=== PATIENT | male | born 1940 | race Caucasian/White ===

== ENCOUNTER 2017-02-06 12:37 | Inpatient (IN) | payer OTHER ==
--- NOTE | 2017-02-06 13:28 | EDPHY ---
HPI/HX/ROS/PE/MDM Narrative: CHIEF COMPLAINT: Weakness, multiple seizures last night. HPI: The patient is a 77-year-old male with a history of Parkinson's who presents with weakness since last night when he had 2 seizures. His reports that he would verbally cry out and then shake for around a minute. He would then have heavy breathing from his mouth. These occurred within 2 hours of each other. She does report that he fell yesterday evening but did not lose consciousness. Last seizure was last April and was the same presentation as lat night. He denies cough, fever, shortness of breath, chest pain. History is limited due to the patient's non-verbal baseline status. REVIEW OF SYSTEMS: Aside from elements discussed in the HPI, a comprehensive 10-point review of systems was reviewed and is negative. PMH: Parkinson's, recurrent UTIs. 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 PHYSICAL EXAM: General: Patient is alert, in no acute distress. ENT: Eyes are normal to inspection. ENT inspection normal. Neck: Normal inspection. Full range of motion. Respiratory: No respiratory distress. Breath sounds normal bilaterally. Cardiovascular: Regular rate and rhythm. Strong peripheral pulses. Abdomen: The abdomen is nontender to palpation. There are no peritoneal signs. There are normal bowel sounds. Back: Normal to inspection. No tenderness to palpation. Skin: Normal color. No rash. Warm and dry. Extremities: Normal appearance. Full range of motion. Neuro: Oriented x3. Normal motor function. Normal sensory function. Portions of this note were transcribed by an ED scribe. I personally performed the history, physical exam, and medical decision making; and confirm the accuracy of the information in the transcribed note. ED Course: 77-year-old male with a history of Parkinson's presents with his for weakness after he experienced 2 seizures last night. These occurred two hours apart and were similar to his last seizure, which was last April. At that time he presented for weakness that ended up being due to a UTI. He has no other complaints today. No shortness of breath, abdominal pain, vomiting, fever, chest pain, or recent sickness. An IV was established and labs ordered. UA ordered. 1L IV saline administered to expedite the urine collection process. I reviewed the patient's laboratory studies. Troponin is mildly elevated at 0.036. Plan for admission for further workup. EKG was ordered and interpreted by myself. Please see [employer] system for official reading. 1434: Consulted with Dr. Guan, hospitalist. She accepts admission. - Data Points Laboratory Results: Laboratory Results 02/06/17 13:45 02/06/17 13:45 02/06/17 02/06/17 13:45 13:45 WBC 11.38 10^3/uL H 10^3/uL (3.80-9.50) RBC 5.02 10^6/uL 10^6/uL (4.40-6.38) Hgb 15.4 g/dL g/dL (13.7-17.5) Hct 47.0 % % (40.0-51.0) MCV 93.6 fL fL (81.5-99.8) MCH 30.7 pg pg (27.9-34.1) MCHC 32.8 g/dL g/dL (32.4-36.7) RDW 12.8 % % (11.5-15.2) Plt Count 178 10^3/uL 10^3/uL (150-400) MPV 11.4 fL fL (8.7-11.7) Neut % (Auto) 82.7 % H % (39.3-74.2) Lymph % (Auto) 8.8 % L % (15.0-45.0) [place] % (Auto) 7.9 % % (4.5-13.0) Eos % (Auto) 0.1 % L % (0.6-7.6) Baso % (Auto) 0.2 % L % (0.3-1.7) Nucleat RBC Rel Count 0.0 % % (0.0-0.2) Absolute Neuts (auto) 9.42 10^3/uL H 10^3/uL (1.70-6.50) Absolute Lymphs (auto) 1.00 10^3/uL 10^3/uL (1.00-3.00) Absolute Monos (auto) 0.90 10^3/uL H 10^3/uL (0.30-0.80) Absolute Eos (auto) 0.01 10^3/uL L 10^3/uL (0.03-0.40) Absolute Basos (auto) 0.02 10^3/uL 10^3/uL (0.02-0.10) Absolute Nucleated RBC 0.00 10^3/uL 10^3/uL (0-0.01) Immature Gran % 0.3 % % (0.0-1.1) Immature Gran # 0.03 10^3/uL 10^3/uL (0.00-0.10) Sodium 145 mEq/L H mEq/L (134-144) Potassium 3.8 mEq/L mEq/L (3.5-5.2) Chloride 109 mEq/L mEq/L (97-110) Carbon Dioxide 25 mEq/l mEq/l (22-31) Anion Gap 11 mEq/L mEq/L (8-16) BUN 27 mg/dL H mg/dL (7-23) Creatinine 1.0 mg/dL mg/dL (0.7-1.3) Estimated GFR > 60 Glucose 114 mg/dL H mg/dL (70-100) Calcium 9.1 mg/dL mg/dL (8.5-10.4) Troponin I 0.036 ng/mL H ng/mL (0-0.034) Medications Given: Discontinued Medications Sodium Chloride (Ns) 1,000 mls @ 0 mls/hr IV ONCE ONE PRN Reason: Wide Open Stop: 02/06/17 13:30 Last Admin: 02/06/17 13:49 Dose: 1,000 mls General Time Seen by Provider: 02/06/17 12:58 Initial Vital Signs: Initial Vital Signs Temperature (C) 36.8 C 02/06/17 12:52 Heart Rate 73 02/06/17 12:52 Respiratory Rate 20 02/06/17 12:52 Blood Pressure 122/63 H 02/06/17 12:52 O2 Sat (%) 91 L 02/06/17 12:52 O2 Delivery Mode Room Air Allergies/Adverse Reactions: No Known Allergies Allergy (Verified 03/20/15 12:19) Home Medications: Medication Instructions Recorded Carbidopa/Levodopa [Sinemet Cr 1 each PO HS 03/13/13 50-200 Tablet] Herbals/Supplements -Info Only 1 each PO AD 03/13/13 Aspirin EC [Aspirin EC 325 mg (*)] 325 mg PO DAILY 03/26/13 Cholecalciferol (Vitamin D3) 4,000 unit PO DAILY 03/20/15 [Vitamin D3] Rasagiline Mesylate [Azilect] 1 mg PO DAILY 03/20/15 Carbidopa/Levodopa [Carbidopa-Levo 1 tab PO 08,1300,1800 05/12/16 ER 50-200 Tab] Acetaminophen [Tylenol 325mg (*)] 650 mg PO Q4 PRN #0 tab 05/14/16 Cephalexin [Keflex (*)] 500 mg PO BIDDIUR #14 cap 05/14/16 levETIRAcetam [Keppra 500 mg (*)] 500 mg PO BID #60 tab 05/14/16 Departure - Departure Disposition: [facility] Acute Clinical Impression: Seizure, Elevated troponin Condition: Fair Report Scribed for: Pedro Vazquez Report Scribed by: Christian Clark Date of Report: 02/06/17 Time of Report: 13:31
[2017-02-06] MEDS ORDERED: NS 1,000 ML IV ONE ×2 (13:29→14:34)
[2017-02-06 13:54] LABS: % IMMATURE GRANULYOCYTES 0.3 % (0.0-1.1); ABSOLUTE IMMATURE GRANULOCYTES 0.03 10^3/uL (0.00-0.10); ADD DIFF? NO; ADD MORPH? NO; ADD SCAN? NO; ATYPICAL LYMPHOCYTE FLAG 20 (0-99); FRAGMENT RBC FLAG 0 (0-99); HEMOGLOBIN 15.4 g/dL (13.7-17.5); LEFT SHIFT FLG 0 (0-99); LIPEMIA HEMOLYSIS FLAG 80 (0-99); MEAN CELL HEMOGLOBIN 30.7 pg (27.9-34.1); MEAN CELL HEMOGLOBIN CONCENTR. 32.8 g/dL (32.4-36.7); MEAN CELL VOLUME 93.6 fL (81.5-99.8); MEAN PLATELET VOLUME 11.4 fL (8.7-11.7); PLATELET CLUMPS FLAG 0 (0-99); PLATELET COUNT 178 10^3/uL (150-400); RED BLOOD CELL COUNT 5.02 10^6/uL (4.40-6.38); RED CELL DISTRIBUTION WIDTH 12.8 % (11.5-15.2)
[2017-02-06 14:13] LABS: ANION GAP 11 mEq/L (8-16); CALCIUM 9.1 mg/dL (8.5-10.4); CARBON DIOXIDE 25 mEq/l (22-31); CHLORIDE 109 mEq/L (97-110); GLOMERULAR FILTRATION RATE > 60; GLUCOSE 114 mg/dL (70-100); POTASSIUM 3.8 mEq/L (3.5-5.2); SODIUM 145 mEq/L (134-144)
[2017-02-06 14:25] LABS: TROPONIN I 0.036 ng/mL (0-0.034)
[2017-02-06] MEDS ORDERED: ACETAMINOPHEN 325 MG TAB PO PRN (14:34)
[2017-02-06] MEDS ORDERED: ONDANSETRON 4 MG/2 ML VIAL IVP PRN (14:34)
[2017-02-06] MEDS ORDERED: ONDANSETRON DISINTEGRATING 4 MG TAB PO PRN (14:34)
--- NOTE | 2017-02-06 14:53 | CPEKG ---
Heart Rate: 75 RR Interval: 800 P-R Interval: 180 QRSD Interval: 106 QT Interval: 480 QTC Interval: 537 P Independence: 76 QRS Independence: 72 T Wave Independence: 236 EKG Severity - ABNORMAL ECG - EKG Impression: SINUS RHYTHM EKG Impression: INCOMPLETE RIGHT BUNDLE BRANCH BLOCK EKG Impression: NONSPECIFIC T ABNORMALITIES, LATERAL LEADS EKG Impression: PROLONGED QT INTERVAL Electronically Signed By: Pedro Vazquez 06-Feb-2017 15:08:03
[2017-02-06 15:08] LABS: COLOR YELLOW; LEUKOCYTE ESTERASE,URINE 3+ (NEGATIVE); NITRITE,URINE POSITIVE (NEGATIVE)
[2017-02-06 15:31] LABS: AMORPHOUS PRESENT /hpf (NONE-1+); BACTERIA 1+ /hpf (NONE SEEN); MUCUS TRACE /lpf (NONE-1+); WBC,URINE 50-182 /hpf (0-3)
--- NOTE | 2017-02-06 16:29 | GHP ---
[f rep st] HISTORY AND PHYSICAL DATE OF ADMISSION: 02/06/2017 CHIEF COMPLAINT: Seizure. HISTORY OF PRESENT ILLNESS: This is a 77-year-old male with Parkinson's that is been progressive, w ho presents with 2 seizures the evening prior to presentation. The patient is nonverbal from his Pa lester's, but is able to answer questions using a thumbs up, thumbs down, and his providing si gnificant history. Per their report, the patient was in his normal state of health the day preceding his presentation. Did have poor appetite at his adult day care center that day, but then ate a normal dinner, was not noted to have any fevers or chills. Denies any chest pain, shortness of breath, abdominal discomfo rt. Has not had diarrhea. The patient denies dysuria or hematuria. He uses a condom cath and, per the 's report, his urine output has been his typical. The patient denies any muscle aches or p ains. Denies any headache, any numbness or tingling. The patient had a hospitalization in April of last year with a similar presentation, presented with a seizure and was found to have a urinary tract infection at the time, was treated for that and had c omplete resolution of his neurologic symptoms. PAST MEDICAL HISTORY: 1. Parkinson's. 2. History of prostate cancer. 3. Hypertension. 4. Chronic urinary retention, uses a condom catheter. 5. Aortic stenosis status post valve replacement. 6. Atrial fibrillation. SOCIAL HISTORY: Negative for tobacco, very rare alcohol. No illicit drugs or marijuana. ADVANCED DIRECTIVES: The patient is "Do Not Resuscitate". His would be his medical decision adan daigle. REVIEW OF SYSTEMS: A 10-point review of systems is negative with the exception of that reported in the HPI. FAMILY HISTORY: Both parents are . PHYSICAL EXAMINATION: VITAL SIGNS: Blood pressure 154/73, heart rate 73, respiratory rate 17, 97% on room air, temperature 37.0. GENERAL: This is a chronically ill-appearing, elderly male in no ac eek distress. HEENT: Notable for dry mucous membranes. Eye exam is negative for any icterus. CAR DIAC: Regular rate and rhythm. Systolic murmur is appreciated. PULMONARY: Patient has good respi ratory effort, is clear to auscultation bilaterally. GASTROINTESTINAL: Positive bowel sounds. ABD OMEN: Soft and nontender. MUSCULOSKELETAL: Negative for any lower extremity edema. SKIN: Exam i s negative for any rashes. NEUROLOGIC: The patient is alert and appropriately answering questions. PSYCHIATRIC: He is pleasant and cooperative on interview and examination. DATA: EKG, which I personally reviewed and interpreted, shows sinus rhythm, normal axis, normal int ervals with nonspecific ST flattening in leads V2 through V6. Appears similar to his EKG of April of 2016. LABORATORY DATA: White count is 11.3, hematocrit 47, platelets of 178. Sodium of 145, creatinine 1 .0. Troponin 0.036. Urinalysis shows 50-182 white blood cells. Positive nitrate, positive leukocy te esterase. ASSESSMENT AND PLAN: This is a 77-year-old male presenting with a seizure. 1. Acute seizure. Urinalysis confirmed the patient has an underlying urinary tract infection. Thi s presentation very directly mirrors his presentation in April of 2016. The patient has not had any seizures since his disposition from this last hospitalization. Will not load the patient with any e pileptics at this time, but instead treat his underlying infection and monitor his neurologic examin ation. I do not believe neuro imaging is indicated at this time. 2. Acute urinary tract infection. Urinalysis is consistent. Patient has known chronic urinary ret ention. Will check blood cultures and initiate IV levofloxacin. 3. Acute leukocytosis secondary to urinary tract infection. Will treat as above and follow both bl ood and urine cultures. 4. Parkinson's. Will continue patient's home medications at his appropriate timing. Have ordered PT and OT for evaluation. 5. Indeterminate troponin. The patient does not have any chest pain complaints and appears to have baseline troponins that range in the 0.02 to 0.1 range. I will check 1 more troponin this evening to verify that it is not extending beyond that range, and otherwise will avoid additional cardiac wo rkup. The patient remained on telemetry overnight as well. 6. Prophylaxis with Lovenox. 7. Diet regular. DISPOSITION: Less than 2 midnights if the patient's neurologic exam remains stable with treatment o f his underlying urinary tract infection. I have discussed the case with the emergency room citlaly parra. Patient will be triaged to the medical-surgical floor for care. /[id number]/MODL
[2017-02-06] MEDS: CARBIDOPA/LEVO CR 50 MG/200 MG TAB PO SCH (18:40)
[2017-02-07 05:06] LABS: % IMMATURE GRANULYOCYTES 0.4 % (0.0-1.1); ABSOLUTE IMMATURE GRANULOCYTES 0.05 10^3/uL (0.00-0.10); ADD DIFF? NO; ADD MORPH? NO; ADD SCAN? NO; ATYPICAL LYMPHOCYTE FLAG 20 (0-99); FRAGMENT RBC FLAG 0 (0-99); HEMOGLOBIN 14.4 g/dL (13.7-17.5); LEFT SHIFT FLG 10 (0-99); LIPEMIA HEMOLYSIS FLAG 80 (0-99); MEAN CELL HEMOGLOBIN 30.8 pg (27.9-34.1); MEAN CELL HEMOGLOBIN CONCENTR. 32.7 g/dL (32.4-36.7); MEAN CELL VOLUME 94.2 fL (81.5-99.8); MEAN PLATELET VOLUME 11.8 fL (8.7-11.7); PLATELET CLUMPS FLAG 10 (0-99); PLATELET COUNT 165 10^3/uL (150-400); RED BLOOD CELL COUNT 4.67 10^6/uL (4.40-6.38); RED CELL DISTRIBUTION WIDTH 12.7 % (11.5-15.2)
[2017-02-07 05:21] LABS: ANION GAP 7 mEq/L (8-16); CALCIUM 8.9 mg/dL (8.5-10.4); CARBON DIOXIDE 23 mEq/l (22-31); CHLORIDE 113 mEq/L (97-110); GLOMERULAR FILTRATION RATE > 60; GLUCOSE 115 mg/dL (70-100); POTASSIUM 3.9 mEq/L (3.5-5.2); SODIUM 143 mEq/L (134-144)
[2017-02-07] MEDS: CHOLECALCIFEROL VIT D3 2,000 UNITS TAB/CAP PO SCH (09:47)
[2017-02-07] MEDS: CARBIDOPA/LEVO CR 50 MG/200 MG TAB PO SCH ×3 (09:48→17:35)
[2017-02-07] MEDS: ASPIRIN EC 325 MG TAB PO SCH (09:48)
[2017-02-07] MEDS: ENOXAPARIN 40 MG/0.4 ML SYR SC SCH (09:48)
[2017-02-07] MEDS: Rasagiline Mesylate [Azilect] 1 MG PO SCH (10:39)
--- NOTE | 2017-02-07 14:49 | HOSPPROG ---
Hospitalist Progress Note Assessment/Plan: 77y male with SZ, and parkinsons. This is my first encounter. Chart reviewed. #SZ second to UTI no further SZ #UTI cont levaquin urine cx pending blood cx pending #Leukocystosis response to infection #Parkinsons close to baseline cont PT/OT nonverbal #Indetermienate troponin stable no other intervention wanted #Diet regular #Dispo change to inpt status will need further monitoring possible DC home in am with HHC reviewed with pt and Subjective: Up in chair. No specific complaints. No pain. Objective: Vital Signs Temp Pulse Resp BP Pulse Ox 36.6 C 75 18 102/54 L 92 02/07/17 12:00 02/07/17 12:00 02/07/17 12:00 02/07/17 12:00 02/07/17 12:00 Laboratory Results 02/07/17 04:20 02/07/17 04:20 02/06/17 02/07/17 02/08/17 05:59 05:59 05:59 Intake Total 1000 Output Total 50 1 Balance 950 -1 - Physical Exam Constitutional: no apparent distress, appears nourished, not in pain Eyes: PERRL, anicteric sclera, EOMI Ears, Nose, Mouth, Throat: moist mucous membranes, hearing normal, ears appear normal Cardiovascular: No JVD, No tachycardia, No edema Respiratory: no respiratory distress, no rales or rhonchi, reduced air movement Gastrointestinal: No tenderness, No ascites, No guarding Skin: warm, normal color, No erythema Musculoskeletal: normal joint ROM, no joint effusions, generalized weakness Neurologic: AAOx3 Psychiatric: interacting appropriately, not anxious, not encephalopathic ICD10 Worksheet Patient Problems: Problems Problem Status Onset Parkinson disease Acute UTI (lower urinary tract infection) Acute UTI (urinary tract infection) Acute Generalized weakness Acute ESBL (extended spectrum beta-lactamase) producing bacteria infection Acute 10/11 Seizure Acute Elevated troponin Acute
[2017-02-08 05:20] VITALS: O2SAT 96
[2017-02-08 07:40] VITALS: BP 144/71; PULSE 72; RESP 15; TEMP 97.8
[2017-02-08] MEDS: ASPIRIN EC 325 MG TAB PO SCH (08:58)
[2017-02-08] MEDS: CARBIDOPA/LEVO CR 50 MG/200 MG TAB PO SCH ×2 (08:58→13:27)
[2017-02-08] MEDS: ENOXAPARIN 40 MG/0.4 ML SYR SC SCH (08:58)
[2017-02-08] MEDS: CHOLECALCIFEROL VIT D3 2,000 UNITS TAB/CAP PO SCH (08:58)
[2017-02-08] MEDS: Rasagiline Mesylate [Azilect] 1 MG PO SCH (08:59)
--- NOTE | 2017-02-08 11:01 | PDIAF ---
- Diagnosis Diagnosis: UTI Code Status: Do Not Resuscitate - Medication Management Discharge Medications: Medications to Continue on Transfer Herbals/Supplements -Info Only 1 each PO AD 03/13/13 [Last Taken 05/11/16] Aspirin EC [Aspirin EC 325 mg (*)] 325 mg PO DAILY 03/26/13 [Last Taken 02/06/17 ] Cholecalciferol (Vitamin D3) [Vitamin D3] 4,000 unit PO DAILY 03/20/15 [Last Taken 02/06/17] Rasagiline Mesylate [Azilect] 1 mg PO DAILY 03/20/15 [Last Taken 02/06/17] Carbidopa/Levodopa [Carbidopa-Levo ER 50-200 Tab] 1 tab PO 08,1300,1800 [Last Taken 02/06/17] Acetaminophen [Tylenol 325mg (*)] 650 mg PO Q4HRS PRN #0 tab 02/08/17 [Last Taken Unknown] levOFLOXACIN [levAQUIN (*)] 750 mg PO DAILY #5 tab 02/08/17 [Last Taken Unknown] Discharge Medications: Refer to the Discharge Home Medication list for PRN reason. PICC Care - Routine: N/A - Orders Services needed: Home Care, Physical Therapy, Occupational Therapy Home Care Face to Face: I certify that this patient was under my care and that I had the required [id number] encounter meeting the encounter requirements on the discharge day. My findings support the fact that the patient is homebound as defined in CMS Chapter 7 Medicare Benefits Manual 30.1.1, The condition of the patient is such that there exists a normal inability to leave home and consequently, leaving home would require a considerable and taxing effort. - Follow Up Care Current Providers and Referrals: Kelly Dempsey MD [Primary Care Provider] - As per Instructions
--- NOTE | 2017-02-08 14:21 | GDS ---
[f rep st] DISCHARGE SUMMARY DISCHARGE DIAGNOSES: 1. Extended-spectrum beta-lactamase urinary tract infection. 2. Seizure disorder. 3. History of Parkinson disease. 4. Leukocytosis. 5. Indeterminate troponin. PHYSICAL EXAMINATION: GENERAL: The patient is alert. VITAL SIGN: Afebrile at 36.6, pulse is 72, r espiratory rate is 15, blood pressure is 144/71. He is saturating 96% on room air. I have seen and evaluated the patient on the day of discharge. HOSPITAL COURSE: The patient is a 77-year-old male who presents to the emergency room with 2 seizur es. He was evaluated and diagnosed with: 1. ESBL urinary tract infection: During this hospitalization, the patient was treated with antibio tic therapy. He has been discharged on Macrobid. He will follow up with his primary care physician in 1 week to re-evaluate his infection. Prescription has been provided at the time of disposition. Repeat outpatient culture should be obtained. I reviewed the patient's case with Dr. Sebastian Dela Cruz. 2. History of Parkinson disease: Patient is close to his baseline with regard to this. He will swartz ve home health care at the time of disposition. 3. Seizure: The patient has had no seizure activity during this hospitalization and does not wish to have any further evaluation secondary to this condition. He does not want to be placed on any an ti-epileptic medications at this time. 4. Acute leukocytosis: This is secondary to the patient's infectious process. 5. Indeterminate troponin: His troponin has stabilized. Again, the patient and his do not wi sh to have any further intervention or workup regarding this condition. DISPOSITION: The patient will be discharged home with his and home health care. There are no pending studies. Followup will be with his primary care physician in 1 week, Dr. Kelly Dempsey. It i s recommended that he have repeat urinalysis and culture in the outpatient setting. DISCHARGE MEDICATIONS: 1. Macrobid 100 mg p.o. twice daily (#14). 2. Tylenol. I have not discontinued the patient's previously prescribed other home medications. Please refer to EMR form for specific details. I spent greater than 35 minutes in the care, coordination, and management of this patient's disposit ion. /[id number]/MODL
== END 2017-02-08 13:48 | disposition home health service (06) | DRG 690 ==
LOC: F3N 15:45 → OBSVTOIN 02-07 14:51
PROVIDERS: ADMIT Hospitalist; ATTEND Internal Medicine
DX: N39.0 Urinary tract infection, site not specified (principal); G40.909 Epilepsy, unspecified, not intractable, without status epilepticus; G20 Parkinson's disease; I10 Essential (primary) hypertension; Z95.3 Presence of xenogenic heart valve
CPT/HCPCS: 97116-GP; 97162-GP; 97166-GO; 97535-GO; G0378; G8978-GP-CM; G8979-GP-CL; G8987-GO-CK; G8988-GO-CJ; J1650; J1956; J2405

== ENCOUNTER 2017-06-04 10:30 | Inpatient (IN) | payer OTHER ==
--- NOTE | 2017-06-04 11:03 | EDPHY ---
H & P Stated Complaint: BIBA for gen weakness & possible UTI, possible sz last night HPI/ROS: CHIEF COMPLAINT: Weakness, possible UTI. HISTORY OF PRESENT ILLNESS: This patient is a 77 year old male with Parkinson's disease arriving via EMS for evaluation of weakness and possible urinary tract infection. He is nonverbal, which reportedly began following aortic valve replacement in late 2012. His at bedside reports that yesterday, he had two seizures around 1:30 and 5:30. During these episodes, he generally cries out, shakes, and blows air through his lips. This morning, he was too weak to get out of bed. He can generally walk around the house with his walker after being helped out of bed, but today he is unable to get up at all. He uses a wheelchair outside of the home. He has had similar symptoms in the past, associated with urinary tract infections. His denies any known fever. He has had difficulty eating recently, and was not able to take his medication this morning - the pill remains on his tongue. No recent illnesses or fever. REVIEW OF SYSTEMS: A ten point review of systems was performed and is negative with the exception of the items mentioned in the HPI. This information was provided by his . Past medical history: Parkinson's disease (diagnosed 10/2007), history of hypertension, resolved. Past surgical history: Right hip replacement (2006), aortic valve replacement ( 2012) Family history: Noncontributory. Social history: at bedside. Home care once per week and day care two times per week. 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 Primary care physician is Dr. Jaquez. General Appearance: Alert. Paucity of motion. Vital signs reviewed. Blood pressure 146/79. Eyes: Pupils equal and pinpoint, no conjunctival injection, no discharge. Anicteric. ENT, Mouth: Mucous membranes are dry, no oropharyngeal erythema or edema. Neck: No lymphadenopathy, supple. Respiratory: Lungs are clear to auscultation; no wheezes, rales, or rhonchi. Cardiovascular: Regular rate and rhythm; no murmur, rub, or gallop. Gastrointestinal: Abdomen is soft, no masses or organomegaly, bowel sounds normal. Skin: Warm and dry, no rashes on exposed skin, normal color. Extremities: No lower extremity edema, no calf tenderness or swelling. Neurological: Alert. Nonverbal. Rigidity of all limbs, no spontaneous movement other than right thumb. Psychiatric: Normal affect. Source: Family - Personal History Current Tetanus/Diphtheria Vaccine: Unsure Current Tetanus Diphtheria and Acellular Pertussis (TDAP): Unsure Tetanus Vaccine Date: within last 6 years - Medical/Surgical History Hx Asthma: No Hx Chronic Respiratory Disease: No Hx Diabetes: No Hx Cardiac Disease: Yes Hx Renal Disease: No Hx Cirrhosis: No Hx Alcoholism: No Hx HIV/AIDS: No Hx Splenectomy or Spleen Trauma: No Other PMH: parkinsons/carotid stenosis/htn/afib/aortic valve replacement 02/2013 , htn (resolved), urinary retention, urinary catheter, prostate cancer treated. 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 ) right hip replacement , cataract surgery bilat , seizures - Social History Smoking Status: Never smoked Constitutional: Initial Vital Signs Temperature (C) 36.4 C 06/04/17 10:50 Heart Rate 92 06/04/17 10:50 Respiratory Rate 16 06/04/17 10:50 Blood Pressure 146/79 H 06/04/17 10:50 O2 Sat (%) 92 06/04/17 10:50 O2 Delivery Mode Room Air Allergies/Adverse Reactions: No Known Allergies Allergy (Verified 06/04/17 10:50) Home Medications: Medication Instructions Recorded Herbals/Supplements -Info Only 1 each PO AD 03/13/13 Aspirin EC [Aspirin EC 325 mg (*)] 325 mg PO DAILY 03/26/13 Cholecalciferol (Vitamin D3) 4,000 unit PO DAILY 03/20/15 [Vitamin D3] Rasagiline Mesylate [Azilect] 1 mg PO DAILY 03/20/15 Carbidopa/Levo Cr 50/200Mg 1 tab PO TID@,,18 06/04/17 [SINEMET CR 50/200 MG (*)] Medical Decision Making ED Course/Re-evaluation: 77-year-old with Parkinson's disease. I have not found evidence of infection in my evaluation. I do not find evidence for urinary tract infection. He has a condom catheter, not an indwelling catheter. Chest x-ray is negative for pneumonia. He is not febrile. I suspect dehydration and Parkinson's exacerbation. His states that he has had difficulty with swallowing his pills. He has a carbidopa levodopa pill on his tongue at the time of my evaluation. I do not know whether adjusting his medications would make a difference or not. IV fluids administered in the emergency department. Blood work reviewed. His describes 2 episodes of what she feels was seizure activity last night. He does not have a known diagnosis of seizure. Apparently he has had previous similar episodes, of which his neurologist is aware. It has been many hours since these episodes. No seizure activity witnessed while in the emergency department. Neurology will be consulted concerning his overall presentation. Even though I have not found evidence of an infection, it is clear to me that his cannot independently care for him at home in this state. He is quite rigid and immobile. She has help once a week. She would not be able to move him from the bed. He will be admitted to the hospitalist service. Dr. Day is the accepting physician. - Data Points Laboratory Results: Laboratory Results 06/04/17 11:03 06/04/17 11:03 Medications Given: Aspirin Buffered (Aspirin Ec) 325 mg PO DAILY DONOVAN Stop: 12/02/17 08:59 Last Admin: 06/05/17 08:34 Dose: 325 mg Carbidopa/Levodopa (Sinemet Cr 50/200) 1 tab PO TID@ DONOVAN Stop: 12/02/17 07:59 Last Admin: 06/05/17 08:34 Dose: 1 tab Cholecalciferol (Vitamin D) 4,000 units PO DAILY DONOVAN Stop: 12/02/17 08:59 Last Admin: 06/05/17 08:34 Dose: 4,000 units Enoxaparin Sodium (Lovenox) 40 mg SC DAILY DONOVAN Stop: 12/02/17 08:59 Last Admin: 06/05/17 08:34 Dose: 40 mg Potassium Chloride/Dextrose/Sod Cl (D5w 1/2 Ns W/ 20 Kcl/L) 1,000 mls @ 50 mls/ hr IV CONT DONOVAN Stop: 12/01/17 16:29 Last Admin: 06/05/17 11:36 Dose: 1,000 mls Levetiracetam 500 mg/ Sodium (Chloride) 105 mls @ 420 mls/hr IV BID DONOVAN Stop: 12/01/17 20:59 Last Admin: 06/05/17 08:34 Dose: 105 mls Miscellaneous Medication (Rasagiline Mesylate [Azilect]) 1 mg PO DAILY DONOVAN Stop: 12/02/17 08:59 Last Admin: 06/05/17 08:45 Dose: Not Given Discontinued Medications Sodium Chloride (Ns) 1,000 mls @ 0 mls/hr IV EDNOW ONE; Wide Open PRN Reason: Protocol Stop: 06/04/17 11:36 Last Admin: 06/04/17 11:44 Dose: 1,000 mls Sodium Chloride (Ns) 1,000 mls @ 0 mls/hr IV ONCE ONE PRN Reason: Wide Open Stop: 06/04/17 14:51 Last Admin: 06/04/17 14:53 Dose: 1,000 mls Departure - Departure Disposition: [facility] Acute Clinical Impression: Generalized weakness, Parkinsons disease Condition: Fair Report Scribed for: Britney mcguire) Report Scribed by: Jennifer Ho Date of Report: 06/04/17 Physician Review and Approval Statement: 06/05/17 12:35 Portions of this note were transcribed by the certified medical technician. I, Dr. Britney Bull, personally performed the history, physical exam, and medical decision- making; and confirmed the accuracy of the information in the transcribed note.
[2017-06-04] MEDS ORDERED: NS 1,000 ML IV ONE ×2 (11:35→14:50)
[2017-06-04 11:53] LABS: % IMMATURE GRANULYOCYTES 0.4 % (0.0-1.1); ABSOLUTE IMMATURE GRANULOCYTES 0.05 10^3/uL (0.00-0.10); ADD DIFF? NO; ADD MORPH? NO; ADD SCAN? NO; ANION GAP 12 mEq/L (8-16); ATYPICAL LYMPHOCYTE FLAG 0 (0-99); CALCIUM 9.2 mg/dL (8.5-10.4); CARBON DIOXIDE 23 mEq/l (22-31); CHLORIDE 108 mEq/L (97-110); FRAGMENT RBC FLAG 0 (0-99); GLOMERULAR FILTRATION RATE > 60; GLUCOSE 109 mg/dL (70-100); LEFT SHIFT FLG 10 (0-99); LIPEMIA HEMOLYSIS FLAG 80 (0-99); MEAN CELL HEMOGLOBIN 31.4 pg (27.9-34.1); MEAN CELL HEMOGLOBIN CONCENTR. 32.7 g/dL (32.4-36.7); MEAN CELL VOLUME 96.1 fL (81.5-99.8); MEAN PLATELET VOLUME 11.7 fL (8.7-11.7); PLATELET CLUMPS FLAG 10 (0-99); PLATELET COUNT 192 10^3/uL (150-400); POTASSIUM 3.9 mEq/L (3.5-5.2); RED CELL DISTRIBUTION WIDTH 12.8 % (11.5-15.2); SODIUM 143 mEq/L (134-144)
[2017-06-04] MEDS ORDERED: LIDOCAINE 2% JELLY 20 ML (UROJECT) ONE (13:13)
[2017-06-04 13:41] LABS: COLOR YELLOW; LEUKOCYTE ESTERASE,URINE TRACE (NEGATIVE); NITRITE,URINE NEGATIVE (NEGATIVE)
[2017-06-04 13:49] LABS: MUCUS TRACE /lpf (NONE-1+)
--- NOTE | 2017-06-04 16:55 | GHP ---
[f rep st] HISTORY AND PHYSICAL DATE OF ADMISSION: 06/04/2017 CHIEF COMPLAINT: Altered mental status and weakness. HISTORY OF PRESENT ILLNESS: This is a 77-year-old male with severe Parkinson disease who was usman t to the emergency department via EMS after he was noted to be very weak this morning. Last night p er the report of his he had 2 seizures. The 1st one was at 1:30 and the 2nd one was at 5:30 th is morning. She says he has had seizures in the past that have been attributed to urinary tract inf ections. During these 4 previous episodes, he has presented in a similar fashion where he has been very rigid and confused after these episodes but improved after receiving antibiotics for his urinar y tract infection. He has been compliant with his home medications. His diet has been poor and he has been having trouble eating. He has not been drinking much fluids. He has not been having any f alise or chills. He was in his usual state of health up until these seizures occurred at 1:30 this morning. During the seizure it was described that they lasted for seconds to minutes and were assoc iated with tonic-colonic movements, and he did appear to lose consciousness. PAST MEDICAL HISTORY: 1. Parkinson disease. 2. Prostate cancer. 3. Hypertension. 4. Chronic urinary retention. 5. Aortic stenosis status post valve replacement. 6. Atrial fibrillation. 7. Right total hip arthroplasty. HOME MEDICATIONS: Reviewed. Refer to [employer] for details. ALLERGIES: No known drug allergies. SOCIAL HISTORY: Lives at home with his with home care. 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 FAMILY HISTORY: Both parents are . REVIEW OF SYSTEMS: Review of systems was unobtainable since the patient is not able to answer quest ions. All history was obtained via the patient's . PHYSICAL EXAM: VITAL SIGNS: Blood pressure 144/71, pulse of 82, respiratory rate 18, O2 saturation 92% on room air. Temperature afebrile. GENERAL: Ill-appearing. HEAD: Normocephalic, atraumatic . Eyes are PERRLA. Sclerae anicteric. MOUTH: Extremely dry oral mucosa with no obvious oral lace rations. NECK: Supple. No lymphadenopathy. CARDIOVASCULAR: S1-S2. No murmurs, rubs, clicks, ga llops, or JVD. No lower extremity edema. PULMONARY: Lungs are clear. No wheezes, rales, or rhonc hi. ABDOMEN: Soft, nontender, nondistended. No guarding or rebound tenderness. Normoactive bowel sounds. EXTREMITIES: No clubbing, cyanosis, or edema. SKIN: Clear. No rashes. NEUROLOGIC: Pike rd to assess since the patient is not following commands. He is alert and oriented time zero. He i s only able to give a thumbs up or thumbs down, but does not do this reliably to answer questions. He does appear to be very rigid. DIAGNOSTICS: WBC is 14.23, hemoglobin 16, hematocrit 49, platelets 192. Sodium 143, potassium 3.9, chloride 108, BUN 25, creatinine 1, glucose 109, calcium 9.2. UA: Trace ketones, trace leukocyte esterase. Chest x-ray, which I visualized and personally interpreted, is negative for pneumonia. N o signs of aspiration. ASSESSMENT AND PLAN: This is a 77-year-old male with history of Parkinson disease presenting with: 1. Acute encephalopathy, possibly due to postictal state or exacerbation of his Parkinson's from oc cult infection or other etiology. 2. Parkinson disease. 3. Suspected malnutrition. 4. Dehydration with evidence of prerenal azotemia. 5. Suspected seizure. PLAN: 1. I discussed the case with Dr. William Thurston from [facility], who is recommending that we load the patient with 500 mg of IV Keppra. I did discuss possibly transferring the patient to [facility] for continuous EEG monitoring, but after discussion with both Dr. Thurston and the patient's we d ecided to keep the patient here at [facility]. 2. Will start IV hydration. 3. Check magnesium and phosphorus levels. 4. Will continue to monitor for signs and symptoms of infection. We will check a procalcitonin lev el to further screen for an occult bacterial infection which could possibly be exacerbating his Park inson's. 5. I suspect the patient will require hospitalization through 2 midnights given the severity of his illness. Will admit to inpatient status. He is at high risk for VTE and will place on low molecul ar weight heparin for DVT prophylaxis. /[id number]/MODL
[2017-06-04 18:51] LABS: PROCALCITONIN 0.04 ng/mL (0.02-0.10)
[2017-06-04 19:09] LABS: MAGNESIUM 2.3 mg/dL (1.6-2.3)
--- NOTE | 2017-06-04 19:41 | GCON ---
[f rep st] CONSULTATION NEUROLOGY CONSULT. DATE OF CONSULTATION: 06/04/2017 REFERRING PHYSICIAN: Tanvir Day DO CHIEF COMPLAINT: Parkinson disease and convulsive episode. HISTORY OF PRESENT ILLNESS: The patient is a very pleasant 77-year-old gentleman who is known to our service for previous hospitalizations most recently in April of 2016, by Dr. oHuser. He had been seen in 2012, by Dr. Rossi. He is managed in terms of his movement disorder at the [facility]. He is on Sinemet CR 50/200 mg 1 tablet 4 times a day and rasagiline 1 mg once a day for his parkinsonism. He has now had 4 episodes of convulsive activity mainly out of sleep. Previously this occurred in the setting of UTI and felt it may have been provoked seizures in the setting of neurodegenerative disease. Therefore, long-term anticonvulsants were not recommended. However, now this is his 4th episode, and there does not appear to be any provocation in terms of a UTI this time, etc. He has 1-3 white blood cells, and trace ketones in his UA. His saw him have a convulsive shaking type episode for 1-2 minutes out of sleep with heavy breathing afterwards. No incontinence or tongue biting. He may have had 2 of these and then appeared to be postictal and was brought to the emergency department for further evaluation. He had a head CT, which showed no intracranial hemorrhage. For past medical history, social history, family history, home medications, and allergies, please see Dr. Day's note. REVIEW OF SYSTEMS: A 10-point review of systems was done and only pertinent to the HPI. PHYSICAL EXAMINATION: VITAL SIGNS: Blood pressure 144/71, temperature 36.7, heart rate 68, O2 sats 93%. GENERAL: The patient is awake, alert, and can respond with a thumbs up or thumbs down, which is his baseline. He is essentially nonverbal according to his . He now has improved back to his baseline. He can follow commands but does not respond verbally. On motor exam , he has significant increased tone throughout with rigidity at the wrists. On cranial nerve exam, he has a masked face. There is no significant rest tremor on coordination exam. seventy total minutes floor time; reviewing previous records, imaging and counseling the patient and his . IMPRESSION/PLAN: 1. Parkinson disease. 2. Suspect coexisting seizure disorder. I counseled the patient and his that 10% of patients with neurodegenerative disorders can develop epilepsy (versus a 1% prevalence overall world-wide of epilepsy). 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 Therefore, I recommend long-term anticonvulsant therapy. He has been given Keppra here in the emergency department. He is back to his baseline, per his . I recommend he continue Keppra 500 mg twice daily indefinitely. He should be given a prescription upon discharge. Certainly, our colleagues in PT and OT will help guide any additional therapies or disposition decisions in terms of transfers etc. as an outpatient. He will follow up with his neurologist at the [facility] in 4-6 weeks for a review of his hospitalization. No further recommendations now. Plan discussed at length with the patient and his . We will continue to follow this very pleasant patient as needed . Thank you for this consultation. /[id number]/MODL MTDD
[2017-06-04] MEDS: levETIRAcetam 500 MG in NS 100 ML IV SCH (21:25)
[2017-06-05] MEDS: D5W 1/2 NS W/ 20 KCl/L 1,000 ML IV SCH ×2 (01:52→11:36)
[2017-06-05 05:06] LABS: % IMMATURE GRANULYOCYTES 0.3 % (0.0-1.1); ABSOLUTE IMMATURE GRANULOCYTES 0.03 10^3/uL (0.00-0.10); ADD DIFF? NO; ADD MORPH? NO; ADD SCAN? NO; ATYPICAL LYMPHOCYTE FLAG 0 (0-99); FRAGMENT RBC FLAG 0 (0-99); HEMATOCRIT 41.4 % (40.0-51.0); HEMOGLOBIN 13.5 g/dL (13.7-17.5); LEFT SHIFT FLG 0 (0-99); LIPEMIA HEMOLYSIS FLAG 80 (0-99); MEAN CELL HEMOGLOBIN 30.9 pg (27.9-34.1); MEAN CELL HEMOGLOBIN CONCENTR. 32.6 g/dL (32.4-36.7); MEAN CELL VOLUME 94.7 fL (81.5-99.8); MEAN PLATELET VOLUME 11.2 fL (8.7-11.7); PLATELET CLUMPS FLAG 10 (0-99); PLATELET COUNT 151 10^3/uL (150-400); RED BLOOD CELL COUNT 4.37 10^6/uL (4.40-6.38); RED CELL DISTRIBUTION WIDTH 12.5 % (11.5-15.2)
[2017-06-05 05:24] LABS: ALANINE AMINOTRANSFERASE 24 IU/L (21-72); ALBUMIN 2.7 g/dL (3.5-5.0); ALKALINE PHOSPHATASE 45 IU/L (38-126); ANION GAP 8 mEq/L (8-16); ASPARTATE AMINOTRANSFERASE 29 IU/L (17-59); BILIRUBIN,TOTAL 1.7 mg/dL (0.1-1.4); CALCIUM 8.5 mg/dL (8.5-10.4); CARBON DIOXIDE 23 mEq/l (22-31); CHLORIDE 110 mEq/L (97-110); GLOMERULAR FILTRATION RATE > 60; GLUCOSE 102 mg/dL (70-100); POTASSIUM 3.7 mEq/L (3.5-5.2); SODIUM 141 mEq/L (134-144); TOTAL PROTEIN 5.1 g/dL (6.3-8.2)
[2017-06-05] MEDS: levETIRAcetam 500 MG in NS 100 ML IV SCH ×2 (08:34→20:30)
[2017-06-05] MEDS: ENOXAPARIN 40 MG/0.4 ML SYR SC SCH (08:34)
[2017-06-05] MEDS: CHOLECALCIFEROL VIT D3 2,000 UNITS TAB/CAP PO SCH (08:34)
[2017-06-05] MEDS: CARBIDOPA/LEVO CR 50 MG/200 MG TAB PO SCH ×3 (08:34→18:14)
[2017-06-05] MEDS: ASPIRIN EC 325 MG TAB PO SCH (08:34)
[2017-06-05] MEDS: Rasagiline Mesylate [Azilect] 1 MG PO SCH (08:45)
--- NOTE | 2017-06-05 11:00 | HOSPPROG ---
Hospitalist Progress Note Assessment/Plan: 77 yo male with hx of advanced parkinsons admitted for generalized weakness and dehydration. #Dehydration, resolving #Generalized Weakness: resolving #PCMN #Leukocytosis, resolving #Acute seizure in setting of likely seizure disorder, Neuro following. On Keppra Plan: -Overall is improving -Decrease IVF -PT/OT -Cont Keppra IV, can change to 500mg PO BID at discharge, will need lifelong. Neuro is following. Will need f/u with [facility] who typically provides his neurological services. -Still weak, may need rehab. Needs to be able to transfer in and out of the wheelchair -Nutrition/Clinical Consultant Consult -Lovenox for DVT proph Subjective: Still weak but improving. No further seizure activity. Essentially back to baseline mentation. No CP or SOB. NO fever. Objective: Vital Signs Temp Pulse Resp BP Pulse Ox 36.6 C 69 18 115/61 93 06/05/17 07:45 06/05/17 07:45 06/05/17 07:45 06/05/17 07:45 06/05/17 07:45 Laboratory Results 06/05/17 04:55 06/05/17 04:55 06/04/17 06/05/17 06/06/17 05:59 05:59 05:59 Intake Total 3908 Output Total 850 Balance 3058 - Physical Exam Constitutional: no apparent distress, appears nourished, not in pain Eyes: PERRL, anicteric sclera, EOMI Ears, Nose, Mouth, Throat: moist mucous membranes, hearing normal, ears appear normal, no oral mucosal ulcers Cardiovascular: regular rate and rhythym, no murmur, rub, or gallop, No JVD, No edema Respiratory: no respiratory distress, no rales or rhonchi, clear to auscultation Gastrointestinal: normoactive bowel sounds, soft, non-tender abdomen, no palpable masses Skin: warm Musculoskeletal: generalized weakness Neurologic: other (no seizure activity) Psychiatric: not anxious ICD10 Worksheet Patient Problems: Problems Problem Status Onset Generalized weakness Acute Parkinsons disease Acute ESBL (extended spectrum beta-lactamase) producing bacteria infection Acute 10/11 Elevated troponin Acute Parkinson disease Acute Seizure Acute UTI (lower urinary tract infection) Acute UTI (urinary tract infection) Acute
--- NOTE | 2017-06-05 14:27 | NEUROPROG ---
Assessment: 1. Parkinson's disease 2. Convulsion NOS Patient has had no further convulsive episodes on Keppra 500 mg twice daily. 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 He and his have been counseled at length. Recommendations: - Keppra 500 mg p. o. twice daily indefinitely - He will follow-up with his movement disorder specialist at the [facility] the beginning of June to review this hospitalization and to continue management of his Parkinson's disease and seizure disorder - he will be on indefinite driving restrictions and seizure precautions No further recommendations, we will sign off and follow up p.r.n. Please do not hesitate to call with any questions or there are any changes in neurologic status with this very pleasant patient. Subjective: No further convulsions Objective: Vital Signs Temp Pulse Resp BP Pulse Ox 36.6 C 69 18 115/61 93 06/05/17 07:45 06/05/17 07:45 06/05/17 07:45 06/05/17 07:45 06/05/17 07:45 Laboratory Results 06/05/17 04:55 06/05/17 04:55 06/04/17 06/05/17 06/06/17 05:59 05:59 05:59 Intake Total 3908 Output Total 850 Balance 3058 Awake/alert Can follow commands by giving a thumbs-up or thumbs down Allergies/Adverse Reactions: No Known Allergies Allergy (Verified 06/04/17 10:50)
[2017-06-06] MEDS: D5W 1/2 NS W/ 20 KCl/L 1,000 ML IV SCH (05:36)
[2017-06-06] MEDS: levETIRAcetam 500 MG in NS 100 ML IV SCH ×2 (09:35→20:45)
[2017-06-06] MEDS: ENOXAPARIN 40 MG/0.4 ML SYR SC SCH (09:36)
[2017-06-06] MEDS: CARBIDOPA/LEVO CR 50 MG/200 MG TAB PO SCH ×3 (09:36→18:43)
[2017-06-06] MEDS: ASPIRIN EC 325 MG TAB PO SCH ×2 (09:36→13:04)
[2017-06-06] MEDS: CHOLECALCIFEROL VIT D3 2,000 UNITS TAB/CAP PO SCH (09:48)
[2017-06-06] MEDS: Rasagiline Mesylate [Azilect] 1 MG PO SCH (10:09)
--- NOTE | 2017-06-06 12:23 | HOSPPROG ---
Hospitalist Progress Note Assessment/Plan: 77 yo male with hx of advanced parkinsons admitted for generalized weakness and dehydration. He is somewhat improved, but not a baseline. Nursing was concerned that he is to weak to swallow this morning and they have notified Speech. Per , this happens at times and gets better throughout the day. I discussed potential rehab with the and her goal to is return home with the patient possibly tomorrow. #Dehydration, resolving #Generalized Weakness: improving, not yet at baseline. Unable to transfer in and out of his wheelchair. PT following. #PCMN: Home Demonstration Agent following #Leukocytosis, resolved #Acute seizure in setting of likely seizure disorder, Neuro following. On Keppra IV due to dysphagia per nursing. Will change to oral dosing once able to tolerate PO. Will need lifelong. Will need f/u with his Neurologist at the [facility]. #Parkinsons Disease: on home meds #DVT proph: Lovenox for DVT proph Dispo: keep overnight, consider discharge in the a.m. with C. Speech to eval today. NPO until eval. Will need to increase IVF if continues NPO and this was d /w the nurse who will inform me of the eval results and need for additional IVF is NPO continuous. Subjective: Still with weakness. Dysphagia noted by nursing. The pt's is at bedside who reports the patient is still not at baseline. Objective: Vital Signs Temp Pulse Resp BP Pulse Ox 36.6 C 58 L 16 144/55 H 94 06/06/17 08:02 06/06/17 08:02 06/06/17 08:02 06/06/17 08:02 06/06/17 05:29 Laboratory Results 06/05/17 04:55 06/05/17 04:55 06/05/17 06/06/17 06/07/17 05:59 05:59 05:59 Intake Total 3908 600 Output Total 850 800 Balance 3058 -200 - Physical Exam Constitutional: chronically ill appearing Eyes: PERRL, EOMI Ears, Nose, Mouth, Throat: moist mucous membranes Cardiovascular: regular rate and rhythym, No edema Respiratory: no respiratory distress, clear to auscultation Gastrointestinal: normoactive bowel sounds, soft, non-tender abdomen Skin: warm Musculoskeletal: generalized weakness Psychiatric: interacting appropriately, poor insight, poor judgement, poor memory ICD10 Worksheet Patient Problems: Problems Problem Status Onset Generalized weakness Acute Parkinsons disease Acute ESBL (extended spectrum beta-lactamase) producing bacteria infection Acute Elevated troponin Acute Parkinson disease Acute Seizure Acute UTI (lower urinary tract infection) Acute UTI (urinary tract infection) Acute
[2017-06-07] MEDS: D5W 1/2 NS W/ 20 KCl/L 1,000 ML IV SCH (03:29)
[2017-06-07 03:34] VITALS: PULSE 64; RESP 16
[2017-06-07 04:48] LABS: % IMMATURE GRANULYOCYTES 0.1 % (0.0-1.1); ABSOLUTE IMMATURE GRANULOCYTES 0.01 10^3/uL (0.00-0.10); ADD DIFF? NO; ADD MORPH? NO; ADD SCAN? NO; ATYPICAL LYMPHOCYTE FLAG 0 (0-99); FRAGMENT RBC FLAG 0 (0-99); HEMATOCRIT 42.3 % (40.0-51.0); LEFT SHIFT FLG 0 (0-99); LIPEMIA HEMOLYSIS FLAG 80 (0-99); MEAN CELL HEMOGLOBIN 31.3 pg (27.9-34.1); MEAN CELL HEMOGLOBIN CONCENTR. 33.1 g/dL (32.4-36.7); MEAN CELL VOLUME 94.6 fL (81.5-99.8); MEAN PLATELET VOLUME 11.3 fL (8.7-11.7); PLATELET CLUMPS FLAG 10 (0-99); PLATELET COUNT 139 10^3/uL (150-400); RED BLOOD CELL COUNT 4.47 10^6/uL (4.40-6.38); RED CELL DISTRIBUTION WIDTH 12.4 % (11.5-15.2)
[2017-06-07 07:34] VITALS: BP 162/91; TEMP 98.2; O2SAT 97
[2017-06-07] MEDS: levETIRAcetam 500 MG in NS 100 ML IV SCH (07:46)
[2017-06-07] MEDS: CHOLECALCIFEROL VIT D3 2,000 UNITS TAB/CAP PO SCH (07:46)
[2017-06-07] MEDS: CARBIDOPA/LEVO CR 50 MG/200 MG TAB PO SCH ×2 (07:46→13:06)
[2017-06-07] MEDS: ASPIRIN EC 325 MG TAB PO SCH (07:46)
[2017-06-07] MEDS: ENOXAPARIN 40 MG/0.4 ML SYR SC SCH (07:46)
[2017-06-07] MEDS: Rasagiline Mesylate [Azilect] 1 MG PO SCH (07:47)
--- NOTE | 2017-06-07 10:43 | PDIAF ---
- Diagnosis Code Status: Do Not Resuscitate - Medication Management Discharge Medications: Medications to Continue on Transfer Herbals/Supplements -Info Only 1 each PO AD 03/13/13 [Last Taken 06/03/17] Aspirin EC [Aspirin EC 325 mg (*)] 325 mg PO DAILY 03/26/13 [Last Taken 06/03/17 ] Cholecalciferol (Vitamin D3) [Vitamin D3] 4,000 unit PO DAILY 03/20/15 [Last Taken 06/03/17] Rasagiline Mesylate [Azilect] 1 mg PO DAILY 03/20/15 [Last Taken 06/03/17] Carbidopa/Levo Cr 50/200Mg [SINEMET CR 50/200 MG (*)] 1 tab PO TID@07/13 [Last Taken 06/03/17] levETIRAcetam [Keppra 500 mg (*)] 500 mg PO BID #60 tab 06/07/17 [Last Taken Unknown] Discharge Medications: Refer to the Discharge Home Medication list for PRN reason. - Orders Services needed: Home Care, Registered Nurse, Physical Therapy, Occupational Therapy, Speech Language Pathologist Home Care Face to Face: I certify that this patient was under my care and that I had the required [id number] encounter meeting the encounter requirements on the discharge day. My findings support the fact that the patient is homebound as defined in CMS Chapter 7 Medicare Benefits Manual 30.1.1, The condition of the patient is such that there exists a normal inability to leave home and consequently, leaving home would require a considerable and taxing effort. Diet Texture: Regular Texture Diet, Thin Liquids - Follow Up Care Current Providers and Referrals: Kelly Dempsey MD [Primary Care Provider] - As per Instructions NONE *PRIMARY CARE P,. [Unknown] - As per Instructions
[2017-06-07] MEDS ORDERED: levETIRAcetam 500 MG TAB PO SCH (21:00)
--- NOTE | 2017-06-07 21:15 | GDS ---
[f rep st] DISCHARGE SUMMARY DISCHARGE DIAGNOSES: 1. Dehydration. 2. Seizure. 3. Advanced Parkinson's disease. 4. Protein calorie malnutrition. HISTORY: The patient is a 77-year-old male with advanced Parkinson's, who presented with acute weak ness, reportedly he had 2 seizures at home. Neurology saw him in consultation, and did feel he was having acute seizures, and recommended discharge with oral Keppra. 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 He will follow up with his neurologist at [facility]. He was seen by Physical and Occupational Therapy, and felt safe to return home with his , who i s quite adept at caring for him and his needs. DISCHARGE MEDICATIONS: Please see computer record for full detailed list. New medication: Keppra 500 mg p.o. b.i.d. DISCHARGE INSTRUCTIONS: Follow up Neurology at [facility] 4-6 weeks. Greater than 30 minutes' time was spent arranging this discharge. The patient was seen and examined by me on the day of discharge. /[id number]/MODL
== END 2017-06-07 14:25 | disposition home health service (06) | DRG 101 ==
LOC: EDUNIT# → F1N 16:09
PROVIDERS: ADMIT Family Medicine; ATTEND Family Medicine
DX: G40.909 Epilepsy, unspecified, not intractable, without status epilepticus (principal); E46 Unspecified protein-calorie malnutrition; E86.0 Dehydration; G20 Parkinson's disease; Z95.4 Presence of other heart-valve replacement; Z96.641 Presence of right artificial hip joint; Z85.46 Personal history of malignant neoplasm of prostate
CPT/HCPCS: 84134-90; 92526-GN; 92610-GN; 97116-GP; 97163-GP; 97166-GO; 97530-GO; 97530-GP; G8978-GP-CM; G8979-GP-CJ; G8980-GP-CJ; G8987-GO-CL; G8988-GO-CK; G8996-GN-CJ; G8997-GN-CI; J1650; J1953

== ENCOUNTER → 2017-10-03 | Outpatient (CLI) | payer OTHER | LOC: FIMAGING 08:27 | PROVIDERS: ATTEND Urology | DX: N20.1 Calculus of ureter (principal); N31.9 Neuromuscular dysfunction of bladder, unspecified ==

== ENCOUNTER 2017-10-16 18:54 | Emergency (ER) | payer OTHER ==
[2017-10-16 19:05] VITALS: PULSE 73; RESP 18
--- NOTE | 2017-10-16 19:11 | EDPHY ---
H & P Stated Complaint: fall, head lac. HPI/ROS: Chief Complaint: Fall, head injury HPI: 77-year-old male with a history of Parkinson's disease had a mechanical fall at home. was assisting into a doorway while he was walking with his walker. She turn for just a moment the patient fell forward, striking his head on the wall. He did not have a loss of consciousness. He sustained a laceration to his left forehead. He is complaining of some pain in the back of his head. No nausea or vomiting. At baseline he is nonverbal in communicates was hand signals. He is currently at his baseline. ROS: 10 point Review of Systems is negative except as noted in the HPI. PMH: Parkinson's disease Physical Exam: Gen: Awake, Alert, No Distress HEENT: There is a 2 cm laceration with abrasion on his left forehead Nose: no rhinorrhea Eyes: PERRLA, EOMI Mouth: Moist mucosa Neck: Supple, no JVD Chest: nontender, lungs clear to auscultation Heart: S1, S2 normal, no murmur Abd: Soft, non-tender, no guarding Back: no CVA tenderness, no midline tenderness Ext: no edema, non-tender Skin: no rash Neuro: CN II-XII intact, Sensation grossly intact, Strength 5/5 in bilateral upper and lower extremities - Personal History Current Tetanus/Diphtheria Vaccine: Yes Current Tetanus Diphtheria and Acellular Pertussis (TDAP): Yes Tetanus Vaccine Date: within last 6 years - Medical/Surgical History Hx Asthma: No Hx Chronic Respiratory Disease: No Hx Diabetes: No Hx Cardiac Disease: Yes Hx Renal Disease: No Hx Cirrhosis: No Hx Alcoholism: No Hx HIV/AIDS: No Hx Splenectomy or Spleen Trauma: No Other PMH: parkinsons/carotid stenosis/afib/aortic valve replacement 02/2013, htn (resolved), urinary retention, urinary condom catheter, prostate cancer treated. 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 ) right hip replacement , cataract surgery bilat , seizures, - Social History Smoking Status: Never smoked Constitutional: Initial Vital Signs Temperature (C) 36.6 C 10/16/17 19:00 Heart Rate 73 10/16/17 19:00 Respiratory Rate 18 10/16/17 19:00 Blood Pressure 184/88 H 10/16/17 19:00 O2 Sat (%) 95 10/16/17 19:00 Allergies/Adverse Reactions: No Known Allergies Allergy (Verified 06/04/17 10:50) Home Medications: Medication Instructions Recorded Herbals/Supplements -Info Only 1 each PO AD 03/13/13 Aspirin EC [Aspirin EC 325 mg (*)] 325 mg PO DAILY 03/26/13 Cholecalciferol (Vitamin D3) 4,000 unit PO DAILY 03/20/15 [Vitamin D3] Rasagiline Mesylate [Azilect] 1 mg PO DAILY 03/20/15 Carbidopa/Levo Cr 50/200Mg 1 tab PO TID@,,18 06/04/17 [SINEMET CR 50/200 MG (*)] levETIRAcetam [Keppra 500 mg (*)] 500 mg PO BID #60 tab 06/07/17 Azilect 10/16/17 Senna 10/16/17 Medical Decision Making - Diagnostics Imaging Results: Imaging Impressions Head CT 10/16/17 19:10 Impression: 1. Likely a small third ventricular clot rather than a nonobstructive colloid cyst. 2. Suspect small right basal ganglia hemorrhage rather than unilateral calcification. Results called to Dr. Ravi at 7:42 PM General information for patients regarding this examination can be found at [email or web address]. If you have questions or comments about this report, please contact me at (hospital) or [phone] (cell). Imaging: Discussed imaging studies w/ business trainer Radiologist Procedures: Procedure: Laceration repair. Verbal consent was obtained from the patient. The 1.5 cm laceration on the left forehead was anesthetized in the usual fashion. The wound was irrigated, draped and explored to its base with a gloved finger. There were no deep structures involved. No tendon injury was identified. The wound was repaired with 3, 5-0 Ethilon simple interrupted sutures. The wound repair was uncomplicated. The procedure was performed by myself. ED Course/Re-evaluation: CT scan was results discussed with Dr. Marino. He is concerned about the possibility of a new interventricular bleed. Neurosurgery has been paged. I have discussed with Dr. purvis, neurosurgery. He has reviewed the CT scan. He does not believe that there is acute bleed at this time. He also states that he is compared to a prior study and these findings were present on the prior study as well. He does not feel the patient has any intracranial bleed at this time. He does not feel the patient needs to be admitted at this time. I have discussed these findings with the patient's . She is in agreement. She will take him home. He will certainly bring him back if there is any change in his neurologic status. Currently is at his baseline. His laceration has been repaired by me. Departure - Departure Disposition: Home, Routine, Self-Care Clinical Impression: Forehead laceration Condition: Good Instructions: Laceration (ED), Care For Your Stitches (ED) Additional Instructions: Sutures need to be removed in 5 days, you can return here or follow up with primary care physician to have this done. Return emergency depart for increasing confusion, vomiting, lethargy, or any other concerns. Referrals: Patient,NotPresent [Unknown] - As per Instructions
[2017-10-16 20:16] VITALS: BP 201/83; TEMP 97.3; O2SAT 96
== END 2017-10-16 20:30 | disposition home or self-care (01) ==
LOC: EDUNIT#
PROC: 0HQ1XZZ Repair Face Skin, External Approach (ICD-10-PCS; principal; 2017-10-16)
DX: S01.81XA Laceration without foreign body of other part of head, initial encounter (principal); G20 Parkinson's disease; I10 Essential (primary) hypertension; Z85.46 Personal history of malignant neoplasm of prostate; Z79.82 Long term (current) use of aspirin; W01.198A Fall on same level from slipping, tripping and stumbling with subsequent striking against other object, initial encounter; Y92.009 Unspecified place in unspecified non-institutional (private) residence as the place of occurrence of the external cause; Y99.8 Other external cause status; Y93.89 Activity, other specified

== ENCOUNTER → 2017-11-24 | Outpatient (CLI) | payer OTHER ==
[~2017-11-24] MED LIST: IOPAMIDOL (ISOVUE-300) 100 ML BTL ONE
== END ==
LOC: FIMAGING 15:44
PROVIDERS: ATTEND Urology
DX: N32.9 Bladder disorder, unspecified (principal); D18.03 Hemangioma of intra-abdominal structures; M51.36 Other intervertebral disc degeneration, lumbar region; M48.061 Spinal stenosis, lumbar region without neurogenic claudication; M12.88 Other specific arthropathies, not elsewhere classified, other specified site; M43.16 Spondylolisthesis, lumbar region; K59.00 Constipation, unspecified
CPT/HCPCS: 74178; Q9967